=== PATIENT | female | born 1985 | race Two or more races ===

== ENCOUNTER 2024-10-19 15:50 | Emergency (ER) | payer OTHER, SELFPAY ==
--- NOTE | ~2024-10-19 | XR_ITS ---
XR foot RT min 3V Ordering provider: MEILSSA Falcon History: . foot pain ,top and arch x 1 month . Comparison: None. FINDINGS: BONES: No acute fracture or dislocation. JOINT SPACES: Narrowing of the proximal and distal interphalangeal joints. No tarsal coalition. SOFT TISSUES: Normal. IMPRESSION: No acute osseous abnormality of the right foot. Polyarticular osteoarthritic changes. Reviewed, dictated and finalized at location A. BUILDER
[2024-10-19 15:58] VITALS: BP 130/64; PULSE 89; RESP 16; TEMP 37; O2SAT 100
[2024-10-19 16:14] VITALS: BP 130/64; PULSE 89; RESP 16; TEMP 37; O2SAT 100
--- NOTE | 2024-10-19 17:27 | ED_ITS ---
HPI - General Adult General Chief complaint: Extremity Problem,Nontraumatic Stated complaint: Right foot pain Source: patient Mode of arrival: ambulatory Limitations: no limitations History of Present Illness HPI narrative: Patient presents for evaluation of right foot pain since August. She cannot identify any specific precipitating injury. She states that she started a walking program in August but was experiencing pain in the dorsal aspect of the right foot so stopped walking for the month of September. Pain continued to worsen. At rest her pain is 6/10 in severity. With movement and weight bearing her pain increases to 8-10/10. She states the pain is aching, sharp, and throbbing. She developed some numbness in her right toes as of today. Related Data Allergies Allergy/AdvReac Type Severity Reaction Status Date / Time iohexol Allergy Unknown Verified 10/19/24 16:03 [From contrast - CT, X-RAY] Review of Systems Review of Systems: CONSTITUTIONAL: Denies fever, chills, or sweats. EYES: Denies visual changes, redness, or discharge. ENT: Denies rhinorrhea, congestion, sore throat, or otalgia. CARDIOVASCULAR: Denies chest pain, palpitations, or edema. RESPIRATORY: Denies cough or dyspnea. GASTROINTESTINAL: Denies abdominal pain, nausea, vomiting, or diarrhea. GENITOURINARY: Denies dysuria or hematuria. SKIN: Denies rash or itching. MUSCULOSKELETAL: Reports right foot pain NEUROLOGIC: Reports numbness in the toes of the right foot. Denies headache, dizziness, or weakness. PSYCHIATRIC: Denies anxiety or depression. PMFSH Past Medical History Medical History (Updated 10/19/24 @ 18:45 by MELISSA Falcon, ) Fatty liver Surgical History Surgical History History of eye surgery Family History Family History Mother Family history non-contributory Social History Social History Smoking status: Never smoker Substance use: never Gender identity (if verbalized by the patient): Female Spiritual care concerns: No Exam Narrative: GENERAL: Well-appearing, well-nourished, and in no acute distress. HEAD: Normocephalic, atraumatic. EYES: PERRLA and EOMI. ENT: Nares clear, no rhinorrhea or epistaxis. Mucous membranes moist. Oropharynx without tonsillar hypertrophy exudate or other lesions. Bilateral TMs pearly delgado nonbulging NECK: Supple. No adenopathy or masses. No carotid bruits or JVD CHEST: Clear to auscultation. No respiratory distress. No wheezes rales or rhonchi HEART: Regular rate and rhythm. No murmur heard. Normal peripheral pulses. ABDOMEN: Soft, nontender, nondistended, normal active bowel sounds. EXTREMITIES: Able to dorsi and plantar flex the right foot. There is tenderness over the dorsal aspect of the right foot. There is no crepitus or deformity present. SKIN: Warm, dry, no rash. NEURO: No focal deficits. Alert and oriented x3. PSYCH: Normal mood and affect. Course Course Emergency Course: This is a 39-year-old female who presented for evaluation of right foot pain. X-ray showed arthritic changes. She has already been taking ibuprofen without m uch improvement. Will discharge with tramadol. Recommend following up with Podiatry. She may continue to use NSAIDs as needed. Go to the emergency department for intractable pain. Patient in agreement with plan of care Level of Care: Express Care Visit Vital Signs Vital signs: Vital Signs Temperature 37.0 C 10/19/24 15:58 Pulse Rate 89 10/19/24 15:58 Respiratory Rate 16 10/19/24 15:58 Blood Pressure 130/64 10/19/24 15:58 Pulse Oximetry 100 10/19/24 15:58 Oxygen Delivery Room Air 10/19/24 15:58 Temperature 37.0 C 10/19/24 16:14 Pulse Rate 89 10/19/24 16:14 Respiratory Rate 16 10/19/24 16:14 Blood Pressure 130/64 10/19/24 16:14 Pulse Oximetry 100 10/19/24 16:14 Oxygen Delivery Room Air 10/19/24 16:14 Medical Decision Making Vital Signs Vital Signs: Vital Signs Temperature 37.0 C 10/19/24 15:58 Pulse Rate 89 10/19/24 15:58 Respiratory Rate 16 10/19/24 15:58 Blood Pressure 130/64 10/19/24 15:58 Pulse Oximetry 100 10/19/24 15:58 Oxygen Delivery Room Air 10/19/24 15:58 Temperature 37.0 C 10/19/24 16:14 Pulse Rate 89 10/19/24 16:14 Respiratory Rate 16 10/19/24 16:14 Blood Pressure 130/64 10/19/24 16:14 Pulse Oximetry 100 10/19/24 16:14 Oxygen Delivery Room Air 10/19/24 16:14 Lab Data Labs: Lab Results 10/19/24 Range/Units 17:45 POC Capillary Glucose 90 (65-105) mg/dl Imaging Data Radiologist's impression: XR foot RT min 3V Ordering provider: MELISSA Falcon History: . foot pain ,top and arch x 1 month . Comparison: None. FINDINGS: BONES: No acute fracture or dislocation. JOINT SPACES: Narrowing of the proximal and distal interphalangeal joints. No tarsal coalition. SOFT TISSUES: Normal. IMPRESSION: No acute osseous abnormality of the right foot. Polyarticular osteoarthritic changes. Discharge Plan Discharge Clinical Impression: Arthritis of foot, right Patient Disposition: Home, Self-Care Condition: Stable Instructions: Antibiotic Form, Arthritis (ED) Patient Language: Italian Prescriptions: New tramadol 50 mg tablet 50 mg PO Q8H PRN (Reason: pain) Qty: 15 0RF Follow-up/Referrals: Toshia,Jeannette Reyes DPM [Non-Staff] - Raffaele Tejada MD [Physician] - Time of Disposition: 18:45
[2024-10-19 17:48] LABS: Glucose Point of Care 90 mg/dl (65-105)
== END 2024-10-19 18:48 | disposition home or self-care (01) ==
PROVIDERS: Emergency Provider Nurse Practitioner
DX: M19.071 Primary osteoarthritis, right ankle and foot (principal); K76.0 Fatty (change of) liver, not elsewhere classified
CPT/HCPCS: 73630; 82948; 99203; G0463

== ENCOUNTER 2025-07-26 07:59 | Outpatient (CLI) | payer OTHER, SELFPAY ==
[2025-07-26 08:18] LABS: Hematocrit 43.2 % (37.0-47.0); Hemoglobin 13.5 g/dL (12.0-15.0); Immature Granulocyte Percent A 0.4 % (0-0.5); Lymphocytes Absolute Auto 2.84 K/mm3 (0.9-3.2); Mean Corpuscular HGB Conc 31.3 g/dl (32-36); Mean Corpuscular Hemoglobin 28.4 pg (26-34); Mean Corpuscular Volume 90.8 fl (80-100); Nucleated Red Blood Cells Absolute Auto 0.000 K/mm3 (0.0-0.012); Nucleated Red Blood Cells Perc 0.0 % (0.0-0.2); Platelet Count Result 287 k/mm3 (150-375); Red Blood Count 4.76 M/mm3 (4.2-5.4); White Blood Count 8.9 K/mm3 (4.5-10.0)
--- OUTSIDE RECORDS SUMMARY | 2025-07-26 08:24 | XMS_ITS | Encounter Summary ---
Author Organization [facility] Address [address] [place] [address] Care Team Providers Care Wall Taper Helper Name Role Phone Sage Merritt DO Primary Care Provider [phone] Encounter Details Date Type Department Care Team (Late st Contact Info) Description 08/29/1998 Outpatient Historical [facility] Jennifer Lee MD [address] [place] [address] Social History Tobacco Use Types Packs/Day Years Used Date Smoking Tobacco: Never Assessed Comments Unknown Sex and Gender Information Value Date Recorded Sex Assigned at Not on file Legal Sex Female 4:31 AM MANAGEMENT ACCOUNTS MANAGER Gender Identity Not on file Sexual Orientation Not on file documented as of this encounter Plan of Treatment Not on file documented as of this encounter Visit Diagnoses Not on filedocumented in this encounter Care Teams Wall Taper Helper Relationship Specialty Start Date End Date Sage Merritt DO [facility] [place] [id number] PCP - General Family Practice 11/06/23 documented as of this encounter
--- OUTSIDE RECORDS SUMMARY | 2025-07-26 08:24 | XMS_ITS | Encounter Summary ---
Author Organization [facility] Address 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
--- OUTSIDE RECORDS SUMMARY | 2025-07-26 08:24 | XMS_ITS | Clinical Summary ---
Author Organization [facility] Address [address] [place] [address] Phone Care Team Providers Care Hat Renovator Name Role Phone Sage Merritt DO Primary Care Provider [phone] Allergies Active Allergy Reactions Criticality Noted Date Comments Iodinated Contrast Media Nausea and Vomiting Low Medications etonogestreL (Nexplanon) 68 mg Implant Inject by subcutaneous injection. Active valACYclovir (VALTREX) 500 mg tabletIndicatio ns:H/O cold sores TAKE 1 TABLET BY MOUTH TWICE A DAY 180 Tablet 1 3 Active albuterol sulfate HFA 90 mcg/actuation aerosol inhalerIndicati ons:Viral URI with cough,Exercise- induced asthma Take 2 Puffs by inhalation every 6 hours as needed for Shortness of Breath or Wheezing. 8.5 Gram 4 Active benzonatate (TESSALON) 200 mg capsuleIndicati ons:Viral URI with cough Take 1 Capsule (200 mg) by mouth 3 times daily as needed for Cough. 30 Capsule 4 Active predniSONE (DELTASONE) 10 mg tabletIndicatio ns:Viral URI with cough Take 4 tablets in the morning for 3 days, then 3 tablets for 3 days, then 2 tablets for 3 days, then 1 tablet for 3 days 30 Tablet 4 Active estradioL (ESTRACE) 0.5 mg tablet take 1 tablet by mouth every day 90 Tablet 1 4 Active venlafaxine (EFFEXOR XR) 150 mg Extended Release 24 hour capsuleIndicati ons:DORIS (generalized anxiety disorder),React rita depression (situational) take 1 capsule by mouth every day 90 Capsule 1 4 Active Active Problems Problem Noted Date Diagnosed Date Reactive depression (situational) 09/24/2022 DORIS (generalized anxiety disorder) 09/24/2022 Prediabetes 09/24/2022 Elevated LFTs 09/24/2022 NAFLD (nonalcoholic fatty liver disease) 022 Gastroesophageal reflux disease without esophagi tis 09/24/2022 Exercise-induced asthma 09/24/2022 Resolved Problems Problem Noted Date Diagnosed Date Resolved Date Insomnia due to other mental disorder 09/24/2022 11/06/2023 Immunizations Immunization Administration Dates Next Due (ADACEL/BOOSTRIX)(10 YR UP) TDAP VACCINE, 0.5ML, IM 02/08/2014 (PFIZER)(12 YR UP) COVID-19 VACCINE - EMERGENCY USE AUTHORIZATION, MRNA, [id number](PF) 30 MCG/0.3 ML IM SUSP 03/02/2021,02/09/2021 Influenza Seasonal Unspecified Formulation IM Social History Tobacco Use Types Packs/Day Years Used Date Smoking Tobacco: Never Smokeless Tobacco: Never Tobacco Cessation:Counseling Given: Not Answered Alcohol Use Standard Drinks/Week Comments Yes 2 (1 standard drink = 0.6 oz pur e alcohol) Comments No Sex and Gender Information Value Date Recorded Sex Assigned at Not on file Legal Sex Female 4:31 AM WELDER TECH Gender Identity Not on file Sexual Orientation Not on file Last Filed Vital Signs Vital Sign Reading Time Taken Comments Blood Pressure 132/87 12/19/2023 8:28 AM WELDER TECH Pulse 76 12/19/2023 8:28 AM WELDER TECH Temperature 36.5 C (97.7 F) 12/19/2023 8:28 AM WELDER TECH Respiratory Rate 25 09/24/2022 4:00 PM WELDER TECH Oxygen Saturation 96% 12/19/2023 8:28 AM WELDER TECH Inhaled Oxygen Concentration - - Weight 81.4 kg (179 lb 6.4 oz) 12/19/2023 8:28 A M WELDER TECH Height 149.9 cm (4' 11) 12/19/2023 8:28 AM WELDER TECH Body Mass Index 36.23 12/19/2023 8:28 AM WELDER TECH Plan of Treatment Health Maintenance Due Date Last Done Comments HEPATITIS B VACCINES (1 of 3 - 19+ 3-dose series) 2003 HPV VACCINES (1 - 3-dose SCD M series) 2011 DTAP/TDAP/TD VACCINES (2 - T d or Tdap) 02/09/2024 02/08/2014 BREAST CANCER SCREENING 2024 03/19/2023 Preventative Visit- Commercial 11/17/2024 0 03/03/2023, 09/24/2022, 12/18/2020, Additional history exists INFLUENZA VACCINE (#1) 2025 09/24/2022, 2014 COVID-19 Vaccine ( - 2024-2 6 season) 2025 03/02/2021, 02/09/2021 PAP SMEAR 03/03/2026 03/03/2023, 11/2020, 04/22/2019 CERVICAL CANCER SCREENING 03/03/2028 HPV/Cotest (21-29) 03/03/2028 03/03/2023, 12/18/2020 HPV/Cotest (30-65) 03/03/2028 03/03/2023, 12/18/2020 Procedures Procedure Name Priority Date/Time Associated Diagnosis Comments MAMMO 3D JOSE GUADALUPE DIAGNOSTIC BILAT W OR WO CAD Routine 03/19/2023 3:11 PM CDT Breast lump on left side at 5 o'clock position Axillary lump, left CERV/VAG CYTO SCREEN PAP RLFX HPV Routine 03/03/2023 4:50 PM CDT Encounter for gynecological examination (general) (routine) with abnormal findings from Last 3 Months or Most Recently Relevant to Health Maintenance Results * (ABNORMAL) MAMMO DIAG BILAT 3D JOSE GUADALUPE W OR WO CAD (03/19/2023 3:11 PM CDT) Anatomical Region Laterality Modality Breast Bilateral Mammography 03/19/2023 3:12 PM CDT Impressions 03/20/2023 7:25 AM CDT IMPRESSION: A new mass at 4:00 of the left breast which probably represents a fibroadenoma. The mass in the inner central aspect of the right breast is unchanged which is likely benign. RECOMMENDATIONS: Ultrasound-guided left breast core biopsy. Left breast overall assessment: BI-RADS Category 4A. Low suspicious lesion. Tissue biopsy is needed. Right breast overall assessment: BI-RADS Category 2. Benign findings. DICTATION LOCATION: Location [address] [place] [address] 03/20/2023 7:25 AM CDT MAMMOGRAPHY DIGITAL DIAGNOSTIC BILATERAL 3-D TOMOGRAPHY WITH OR WITHOUT CAD AND LEFT BREAST ULTRASOUND LIMITED 03/19/2023. HISTORY: Palpable area in the left breast. TECHNIQUE: Low-dose full-field digital tomosynthesis of bilateral breasts was performed with 2-D and 3-D acquisition. Computer aided diagnosis was also applied. COMPARISON: 06/10/2017. Mammographic findings: The breast tissues are heterogeneously dense bilaterally which may lower the sensitivity of the mammography. An oval mass with circumscribed margins in the inner central aspect of the right breast at posterior depth is again seen, unchanged. No new mass, malignant calcification or architectural distortion is seen in the right breast. In the central slightly lateral and inferior aspect of the left breast, a new oval mass with circumscribed margins at the anterior depth is seen which corresponds to the palpable area. No no malignant calcification or architectural distortion is identified. CAD was used. Left breast ultrasound findings: At 4:00, 5 cm from the nipple, a hypoechoic oval parallel mass is identified which corresponds to the palpable area. It has smooth margins measuring 1.5 x 0.8 x 1.4 cm. It probably represents a fibroadenoma. Procedure Note Latoya Garsia MD - 03/20/2023 MAMMOGRAPHY DIGITAL DIAGNOSTIC BILATERAL 3-D TOMOGRAPHY WITH OR WITHOUT CAD AND LEFT BREAST ULTRASOUND LIMITED 03/19/2023. HISTORY: Palpable area in the left breast. TECHNIQUE: Low-dose full-field digital tomosynthesis of bilateral breasts was performed with 2-D and 3-D acquisition. Computer aided diagnosis was also applied. COMPARISON: 06/10/2017. Mammographic findings: The breast tissues are heterogeneously dense bilaterally which may lower the sensitivity of the mammography. An oval mass with circumscribed margins in the inner central aspect of the right breast at posterior depth is again seen, unchanged. No new mass, malignant calcification or architectural distortion is seen in the right breast. In the central slightly lateral and inferior aspect of the left breast, a new oval mass with circumscribed margins at the anterior depth is seen which corresponds to the palpable area. No no malignant calcification or architectural distortion is identified. CAD was used. Left breast ultrasound findings: At 4:00, 5 cm from the nipple, a hypoechoic oval parallel mass is identified which corresponds to the palpable area. It has smooth margins measuring 1.5 x 0.8 x 1.4 cm. It probably represents a fibroadenoma. IMPRESSION: A new mass at 4:00 of the left breast which probably represents a fibroadenoma. The mass in the inner central aspect of the right breast is unchanged which is likely benign. RECOMMENDATIONS: Ultrasound-guided left breast core biopsy. Left breast overall assessment: BI-RADS Category 4A. Low suspicious lesion. Tissue biopsy is needed. Right breast overall assessment: BI-RADS Category 2. Benign findings. DICTATION LOCATION: Location 1 - [facility] Rosalba Salas COMMERCIAL REVIEW APPRAISER MAMMO ORDERABLES Fin al Result * CERV/VAG CYTO SCREEN PAP RLFX HPV (03/03/2023 4:50 PM CDT) CLINICAL INFORMATION Kamilla Ramirez Comment:None given LAST MENSTRUAL PERIOD Kamilla Ramirez Comment:[id number] PREV PAP: Kamilla Ramirez Comment:NONE GIVEN PREV BX: Kamilla Ramirez Comment:NONE GIVEN SOURCE Kamilla Ramirez Comment:ENDOCERVIX ADEQUACY: Kamilla Ramirez Comment: Satisfactory for evaluation. Endocervical/transformation zone component present. PAP INTERP Kamilla Ramirez Comment:Negative for intraep ithelial lesion or malignancy. CYTOLOGY INFECTION Q jaun Ramirez Comment: Shift in vaginal chante suggestive of bacterial vaginosis. COMMENT (PAP TEST) Q jaun Ramirez Comment: This Pap test has been evaluated with computer assisted technology. AIRCRAFT MAINTENANCE TECHNICIAN: Violetta Ramirez Comment: MMW, CT(ASCP) CT screening location: [facility] [address] [place] [address] [address] Hallie Ramirez Comment: EXPLANATORY NOTE: The Pap is a screening test for cervical cancer. It is not a diagnostic test and is subject to false negative and false positive results. It is most reliable when a satisfactory sample, regularly obtained, is submitted with relevant clinical findings and history, and when the Pap result is evaluated along with historic and current clinical information. Test Performed at: [place] [address] [address] [id number] Kirk Mao Genital SWAB OF ENDOCERVIX / Unknown 03/03/2023 4:50 PM CDT 03/04/2023 1:11 AM CDT Rosalba Salas COMMERCIAL REVIEW APPRAISER PATHOLOGY/CYTOLOGY O RDERABLES Final Result [facility] [phone] [place] [address] [address] [id number] from Last 3 Months or Most Recently Relevant to Health Maintenance Insurance [employer] [facility] [id number] Care Teams Hat Renovator Relationship Specialty Start Date End Date Sage Merritt DO [facility] [place] [address] PCP - General Family Practice 11/06/23
--- OUTSIDE RECORDS SUMMARY | 2025-07-26 08:24 | XMS_ITS | Encounter Summary ---
Author Organization [facility] Address [address] [place] [address] Care Team Providers Care Machine Set Up Operator Name Role Phone Sage Merritt DO Primary Care Provider [phone] Encounter Details Date Type Department Care Team (Late st Contact Info) Description 09/13/1998 Outpatient Historical [facility] PRIMARY CARE Jennifer Lee MD [address] [place] [address] Social History Tobacco Use Types Packs/Day Years Used Date Smoking Tobacco: Never Assessed Comments Unknown Sex and Gender Information Value Date Recorded Sex Assigned at Not on file Legal Sex Female 4:31 AM SURGICAL ELASTIC KNITTER HAND FRAME Gender Identity Not on file Sexual Orientation Not on file documented as of this encounter Plan of Treatment Not on file documented as of this encounter Visit Diagnoses Not on filedocumented in this encounter Care Teams Machine Set Up Operator Relationship Specialty Start Date End Date Sage Merritt DO [facility] [place] [phone] PCP - General Family Practice 11/06/23 documented as of this encounter
--- OUTSIDE RECORDS SUMMARY | 2025-07-26 08:24 | XMS_ITS | Encounter Summary ---
Author Organization [facility] Address 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
--- OUTSIDE RECORDS SUMMARY | 2025-07-26 08:24 | XMS_ITS | Encounter Summary ---
Author Organization [facility] Address 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
--- OUTSIDE RECORDS SUMMARY | 2025-07-26 08:24 | XMS_ITS | Encounter Summary ---
Author Organization [facility] Address [address] [place] [address] Care Team Providers Care Communication Studies Professor Name Role Phone Sage Merritt DO Primary Care Provider [phone] Encounter Details Date Type Department Care Team (Late st Contact Info) Description 10/28/2011 Chart Note [facility] Orthopaedic Trauma Surgery [address] [facility] [address] [phone] Suresh Ferguson MD [address] [place] [address] Social History Tobacco Use Types Packs/Day Years Used Date Smoking Tobacco: Never Assessed Comments Unknown Sex and Gender Information Value Date Recorded Sex Assigned at Not on file Legal Sex Female 4:31 AM PACKING ROOM SUPERVISOR Gender Identity Not on file Sexual Orientation Not on file documented as of this encounter Progress Notes * Suresh Ferguson MD - 10/28/2011 9:17 AM CST Dear Marybeth Harris MD, We had the pleasure of seeing Leona Royal today in sports medicine and shoulder surgery clinic at [facility] for her right gastroc strain. We have recommended ice, NSAIDs, and physicaltherapy. She may also discontinue crutches. We will gladly see her back if her symptoms persist and do not improve in the future. Please do not hesitate to contact me with questions regarding her or any other patient in the future. Best regards, Shan Lombardo MD ING ROOM SUPERVISOR documented in this encounter Plan of Treatment Not on file documented as of this encounter Visit Diagnoses Not on filedocumented in this encounter Care Teams Communication Studies Professor Relationship Specialty Start Date End Date Sage Merritt DO [address] [place] [phone] PCP - General Family Practice 11/06/23 documented as of this encounter
--- OUTSIDE RECORDS SUMMARY | 2025-07-26 08:24 | XMS_ITS | Clinical Summary ---
Author Organization [facility] [employer] Address [address] [place] [address] Care Team Providers Care Groundskeeper Porter Name Role Phone Navdeep Carroll PA-C Primary Care Provider Source Comments [facility],non-owned Affiliates and Associated Physician Practices is amultiple site organization consisting of ambulatory clinics and hospital sitesin [place], [place], [place] and [place]. This disclosure is being madepursuant to the Care Everywhere program and may not contain all information available regarding this patient. Last updated 18.[facility] [employer] Allergies Active Allergy Reactions Criticality Noted Date Comments Contrast-Iodinated Agents Fo r Ct/Other Nausea and/or Vomiting 12/16/2019 Medications * Be aware that medications may not be up to date on this document. Alwaysverify current medications with the patient. albuterol HFA (PROVENTIL;ESMER ROSY;PROAIR) 108 (90 BASE) MCG/ACT inhaler Inhale 2 Puffs by mouth every 4 hours 5 Active valACYclovir (VALTREX) 500 MG tablet Take 1 tablet by mouth every 12 hours prn 60 tablet 8 Active levonorgestrel-e thinyl estradiol (SEASONALE; JOLESSA; QUASENSE) tablet Take 1 tablet by mouth once daily 1 packet 3 9 Active mometasone (ELOCON) 0.1 % ointmentIndicati ons:Alopecia Apply to affected area of scalp once daily. 30 days supply. 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 30 days supply 120 mL 4 9 Active Additional Information Patient not taking.Reported on 12/16/2019 hydrocortisone (HYTONE) 2.5 % ointmentIndicati ons:Rash and other nonspecific skin eruption Apply to axillae twice daily. 30 days supply. 30 g 4 9 Active Additional Information Patient not taking.Reported on 12/16/2019 prochlorperazine (COMPAZINE) 10 MG tabletIndication s:Nausea and Vomiting Take 1 tablet by mouth every 8 hours as needed for Nausea/Vomiting Reasons: Nausea and Vomiting 25 tablet 0 Active Active Problems No known active problems Immunizations Immunization Administration Dates Next Due INFLUENZA VACCINE, TRIV. (AF LURIA, FLUZONE TRIVALENT; 6MO+) (IIV3) 10/01/2015 TDAP (7yrs+) 02/08/2014 Family History Relation Name Status Comments Brother Alive Father Alive Maternal Grandfather Maternal Grandmother Mother Alive Paternal Grandfather Paternal Grandmother Sister Alive Social History Tobacco Use Types Packs/Day Years Used Date Smoking Tobacco: Never Smokeless Tobacco: Never Alcohol Use Standard Drinks/Week Comments Yes 0 (1 standard drink = 0.6 oz pur e alcohol) occasional Comments No Sex and Gender Information Value Date Recorded Sex Assigned at Not on file Legal Sex Female 6:33 AM FISHER HAND LINE Gender Identity Not on file Sexual Orientation Not on file Last Filed Vital Signs Vital Sign Reading Time Taken Comments Blood Pressure 108/80 12/16/2019 2:04 PM FISHER HAND LINE Pulse 72 12/16/2019 2:04 PM FISHER HAND LINE Temperature 37.2 C (98.9 F) 12/16/2019 2:04 PM FISHER HAND LINE Respiratory Rate 16 11/03/2017 4:24 PM FISHER HAND LINE Oxygen Saturation 98% 12/16/2019 2:04 PM FISHER HAND LINE Inhaled Oxygen Concentration - - Weight 77.9 kg (171 lb 12.8 oz) 12/16/2019 2:04 PM FISHER HAND LINE Height 149.9 cm (4' 11) 02/19/2018 8:27 AM CDT Body Mass Index 34.7 02/19/2018 8:27 AM CDT Plan of Treatment Health Maintenance Due Date Last Done Comments MAMMOGRAM 1984 HIV SCREENING 1999 HEPATITIS B VACCINE (1 of 3 - 19+ 3-dose series) 2003 HPV VACCINE (1 - 3-dose SCDM series) 2011 LIPID TESTING 12/05/2021 12/05/2016, 12/21/2011 DTAP/TDAP/TD VACCINES (2 - T d or Tdap) 02/09/2024 02/08/2014 PAP with HPV 04/22/2024 04/22/2019 DEPRESSION SCREENING 11/17/2024 COVID-19 VACCINE ( - 2023-2 5 season) 2025 INFLUENZA VACCINE (#1) 2025 10/01/2015 ZOSTER VACCINE (1 of 2) 2034 HEPATITIS C SCREENING Completed 12/17/2019 , 12/17/2019, 06/06/2010 HIB VACCINE Aged Out No longer eligi ble based on patient's age to complete this topic MENINGOCOCCAL (Group B) VACCINE SHARED DECISION-MAKING Aged Out No longer eligible based on patient's age to complete this topic MENINGOCOCCAL GROUPS A/C/Y/W VACCINE Aged Out No longer eligible b ased on patient's age to complete this topic PNEUMOCOCCAL VACCINE Aged Out No long er eligible based on patient's age to complete this topic Procedures Procedure Name Priority Date/Time Associated Diagnosis Comments HPV DETECTION HIGH RISK WOO Routine 04/22/2019 10:56 AM CDT Well woman exam with routine gynecological exam LIPID PROFILE Routine 12/05/2016 11:44 AM FISHER HAND LINE HEPATITIS C RIBA CONFIRMATION Routine 06/06/2010 2:21 PM CDT from Last 3 Months or Most Recently Relevant to Health Maintenance Results * (ABNORMAL) HPV DETECTION HIGH RISK WOO (04/22/2019 10:56 AM CDT) Pathologist [facility] High Risk Human Papilloma Result Detected( A) Not Detected 04/26/2019 4:45 PM CDT [facility] High Risk Human Papilloma Interp 04/26/2019 4:45 PM CDT [facility] Comment:High Risk Human Thierry lloma Virus - Detected Pathology/Cytolo gy MISCELLANEOUS SAMPLES / Unknown 04/22/2019 10:56 AM CDT 04/23/2019 10:56 AM CDT Narrative [facility] - 04/26/2019 4:45 PM CDT Nucleic acid isolated from the specimen was analyzed with a nucleic acid amplification test (FDA approved Gen-Probe HPV Assay) to detect high risk human papilloma virus (Types: 16, 18, 31, 33, 35, 39, 45, 51, 52, 56, 58, 59, 66, and 68). The reference range is Not Detected. Comment: These test results should not be used as the sole basis for clinical assessment and treatment of patients. These results should always be correlated with other available data (cytology, histology, and clinical information). Navdeep Carroll PA-C LAB - MICROBIOLOGY ORDERABL ES Final Result [facility] [address] [phone] * (ABNORMAL) LIPID PROFILE (12/05/2016 11:44 AM FISHER HAND LINE) Pathologist [facility] Cholesterol Total 233(H) 125 - 200 mg/dL [facility]) HDL 57 > OR = 46 mg/dL [facility] Triglycerides 120 <150 mg/dL [facility] LDL Calculated 152(H) <130 mg/dL (calc) [facility] ([facility]) Comment: Desirable range <100 mg/dL for patients with CHD or diabetes and <70 mg/dL for diabetic patients with known heart disease. Chol/HDL Ratio 4.1 < OR = 5.0 (calc) [facility]) Non HDL Cholesterol 176(H) mg/dL (calc) [facility] ([facility]) Comment: Target for non-HDL cholesterol is 30 mg/dL higher than LDL cholesterol target. Test Performed at: [facility] [address] [address] [facility] [place] [address] LITO BROWN DO,MPH Blood specimen (specimen) BLOOD SPECIMEN / Unknown 12/05/2016 11:44 AM FISHER HAND LINE 12/05/2016 11:44 AM FISHER HAND LINE Navdeep Carroll PA-C LAB - CHEMISTRY ORDERABLES Final Result Performing Organization Address [facility] Co de Phone Number [facility] ([facility]) [address] * HEPATITIS C RIBA CONFIRMATION (06/06/2010 2:21 PM CDT) Hepatitis C Antibody 0.1 0.0 - 0.9 s/co ratio [facility] ([facility]) Comment: Negative Not infected with HCV, unless recent infection is suspected or other evidence exists to indicate HCV infection. Blood specimen (specimen) 06/06/2010 2:21 PM CDT 06/06/2010 9:18 PM CDT Narrative [facility] ([facility]) - 06/07/2010 9:30 AM CDT Preferred Lab:->[facility] Performed at: - [facility] [address] [place], [place] [id number] Manager Hospitality: Yun Mckeon MD, Phone: [phone] Historical Provider MD LAB - SEROLOGY ORDERABLES Final Result Performing Organization Address City/[facility] Co de Phone Number [facility] ([facility]) [address] [place] [address] from Last 3 Months or Most Recently Relevant to Health Maintenance Insurance [employer] Care Teams Groundskeeper Porter Relationship Specialty Start Date End Date Navdeep Carroll PA-C [address] [place] [phone] PCP - General Physician Cv/Cvn Cv Tsc System Operator 01/06/18
--- OUTSIDE RECORDS SUMMARY | 2025-07-26 08:24 | XMS_ITS | Encounter Summary ---
Author Organization [facility] Address [address] [place] [address] Care Team Providers Care Farm Operations Technical Director Name Role Phone Sage Merritt DO Primary Care Provider [phone] Encounter Details Date Type Department Care Team (Late st Contact Info) Description 03/29/1999 Outpatient Historical HIS [facility] PRIMARY CARE Jennifer Lee MD [address] [place] [address] Social History Tobacco Use Types Packs/Day Years Used Date Smoking Tobacco: Never Assessed Comments Unknown Sex and Gender Information Value Date Recorded Sex Assigned at Not on file Legal Sex Female 4:31 AM MATHEMATICS INSTRUCTOR Gender Identity Not on file Sexual Orientation Not on file documented as of this encounter Plan of Treatment Not on file documented as of this encounter Visit Diagnoses Not on filedocumented in this encounter Care Teams Farm Operations Technical Director Relationship Specialty Start Date End Date Sage Merritt DO [facility] [place] [phone] PCP - General Family Practice 11/06/23 documented as of this encounter
== END 2025-07-26 08:00 | disposition home or self-care (01) ==
PROVIDERS: Visit Provider Obstetrics & Gynecology
DX: N94.6 Dysmenorrhea, unspecified (principal); N83.202 Unspecified ovarian cyst, left side
CPT/HCPCS: 36415; 85025; 86850; 86900; 86901

== ENCOUNTER 2025-07-29 01:43 | Day surgery (SDC) | payer OTHER, SELFPAY ==
[2025-07-21 10:28] VITALS: BMI 35.6
--- NOTE | 2025-07-26 03:27 | P.HP_ITS ---
H&P: HPI History of Present Illness Date/Time: 07/26/25 03:27 Chief Complaint: Pelvic pain with left ovarian cyst dyspareunia Narrative: 39-year-old total vaginal hysterectomy bilateral salpingectomy and left ovarian cystectomy possible left oophorectomy secondary to pelvic pain dysmenorrhea left ovarian cyst and irregular bleeding. Risks and benefits reviewed including exclusive , aspiration bleeding, transfusion, perforation injury to bowel, bladder, ureters, or other internal organs with need for open laparotomy. She received the [employer] handout entitled hysterectomy. She had the [place] handout g iven to her. She had all questions answered as proceed Review of Systems Review of Systems: CONSTITUTIONAL: Denies fever, chills, or sweats. EYES: Denies visual changes, redness, or discharge. ENT: Denies rhinorrhea, congestion, sore throat, or otalgia. CARDIOVASCULAR: Denies chest pain, palpitations, or edema. RESPIRATORY: Denies cough or dyspnea. GASTROINTESTINAL: Denies abdominal pain, nausea, vomiting, or diarrhea. GENITOURINARY: Denies dysuria or hematuria. SKIN: Denies rash or itching. MUSCULOSKELETAL: Reports right foot pain NEUROLOGIC: Reports numbness in the toes of the right foot. Denies headache, dizziness, or weakness. PSYCHIATRIC: Denies anxiety or depression. [facility] Past Medical History Medical History (Updated 07/26/25 @ 03:30 by Benny Ortiz MD) Pelvic pain Fatty liver Surgical History Surgical History History of eye surgery Family History Family History Mother Family history non-contributory Social History Social History Smoking status: Never smoker Substance use: never Substance use type: does not use Living arrangements: with family Gender identity (if verbalized by the patient): Female Spiritual care concerns: No Meds Home Medications and Allergies Home Medications ?Medication ?Instructions ?Recorded ?Confirmed ?Type ibuprofen 200 mg tablet (Advil) 400 mg PO QID PRN pain 07/21/25 07/21/25 History magnesium 200 mg tablet 400 mg PO HS PRN insomnia 07/21/25 History Allergies Allergy/AdvReac Type Severity Reaction Status Date / Time iohexol (From contrast - CT, Allergy Intermediate Swelling Verified 07/21/25 10:26 X-RAY) of Lip/Tongue/Throat Exam Const: General: cooperative, healthy appearing and comfortable Nutritional Appearance: overweight Orientation/consciousness: oriented to person, oriented to place and oriented to time HENMT: Head: normal to inspection Resp: Effort & Inspection: normal respiratory effort Cardio: Rate: regular rate Rhythm: regular rhythm Heart sounds: S1 normal heart sound present and S2 normal heart sound present GI: Inspection: normal to inspection : External Female Exam: normal external appearance Speculum Exam - Vagina: normal appearance of the vagina Speculum Exam - Cervix: normal appearance of the cervix Bimanual exam- vagina & uterus: enlarged Bimanual Exam- Adnexa, other: normal adnexae Assessment and Plan Assessment and plan (1) Dyspareunia: Status: Acute (2) Left ovarian cyst: Code(s): N83.202 - Unspecified ovarian cyst, left side Status: Acute Plan Proceed with robotic total vaginal hysterectomy bilateral salpingectomy left ovarian cystectomy and possible left oophorectomy
--- NOTE | 2025-07-26 08:07 | PC.NURSE ---
Report to the Outpatient Waiting Room, entrance under the green pavilion located off [facility], at time 0800 on date 07/29/25. Planned Procedure Time: 1000.? Time changes happen often and if your time is changed the preop area will call you the afternoon before. - You and your visitor will be asked to self-screen and do not enter if you have any COVID symptoms. Please call surgeon if you need to reschedule. - A mask is optional within the hospital at this time. Patients may have clear liquids (water, carbonated beverages, clear teas, apple juice) until 3 hours prior to surgery with a maximum of 20 ounces. - No food from midnight until time of surgery and no smoking, or chewing tobacco (or any form of nicotine). No chewing gum, candy or mints. Take only the following medications with a SIP of water on the morning of surgery: None DO NOT STOP ANY OF YOUR OTHER PRESCRIPTION MEDICATIONS PRIOR TO SURGERY EXCEPT THE FOLLOWING Hold all vitamins and supplements for 3 days per anesthesiologist (last dose 07/25/25) Medications to discontinue per physician: Advil Date to take last dose: per Dr. Rio Ortiz Please no make-up, nail danish, hairspray, perfume, deodorant, or body powder the day of surgery.? No jewelry (including any body piercings) or valuables the day of surgery, leave them at home.? Please take a shower or bath the night before, or the morning of, surgery with an antibacterial soap.? Wear comfortable, loose fitting clothing.? Children are encouraged to wear pajamas. - Jewelry must be removed prior to entering the operating room.? Rings and piercings that are not removed may be cut off. - The hospital will not accept responsibility for valuables.? - Please leave all valuables, including medications, at home the day of surgery. If you are going home after surgery, a licensed route cdl driver must drive you home.? - NO public transportation without another adult if you receive anesthesia. - We recommend that an adult stay with you for 24 hours following discharge. - We also recommend that you do not drive, make important decision, drink alcoholic beverages, or take any drugs that were not prescribed by your health care provider for at least 24 hours after your discharge time. Follow any additional instructions given to you from your surgeon. Telephone instructions given to pt - Leona and asked if any additional questions and then verbalized understanding. Patient advised to call surgeon office or pre surgery nurse liaison [phone] if any additional questions.
[2025-07-29] VITALS (11 sets, daily range): BP systolic 94–128; BP diastolic 42–77; PULSE 56–84; RESP 14–24; TEMP 36.4–36.9; O2SAT 96–100
--- OUTSIDE RECORDS SUMMARY | 2025-07-29 01:46 | XMS_ITS | Encounter Summary ---
Author Organization [facility] Address [address] [place] [address] Care Team Providers Care Door Tender Name Role Phone Sage Merritt DO Primary Care Provider [phone] Encounter Details Date Type Department Care Team (Late st Contact Info) Description 03/29/1999 Outpatient Historical [facility] PRIMARY CARE Jennifer Lee MD [address] [place] [address] Social History Tobacco Use Types Packs/Day Years Used Date Smoking Tobacco: Never Assessed Comments Unknown Sex and Gender Information Value Date Recorded Sex Assigned at Not on file Legal Sex Female 4:31 AM POLICY CHECKER Gender Identity Not on file Sexual Orientation Not on file documented as of this encounter Plan of Treatment Not on file documented as of this encounter Visit Diagnoses Not on filedocumented in this encounter Care Teams Door Tender Relationship Specialty Start Date End Date Sage Merritt DO [facility] [place] [phone] PCP - General Family Practice 11/06/23 documented as of this encounter
--- OUTSIDE RECORDS SUMMARY | 2025-07-29 01:46 | XMS_ITS | Encounter Summary ---
Author Organization [facility] Address [address] [place] [address] Care Team Providers Care Generator Worker Name Role Phone Sage Merritt DO Primary Care Provider [phone] Encounter Details Date Type Department Care Team (Late st Contact Info) Description 03/12/[address] [facility] PRIMARY CARE Jennifer Lee MD [address] [place] [address] Social History Tobacco Use Types Packs/Day Years Used Date Smoking Tobacco: Never Assessed Comments Unknown Sex and Gender Information Value Date Recorded Sex Assigned at Not on file Legal Sex Female 4:31 AM LEAD TELLER Gender Identity Not on file Sexual Orientation Not on file documented as of this encounter Plan of Treatment Not on file documented as of this encounter Visit Diagnoses Not on filedocumented in this encounter Care Teams Generator Worker Relationship Specialty Start Date End Date Sage Merritt DO [facility] [place] [phone] PCP - General Family Practice 11/06/23 documented as of this encounter
--- OUTSIDE RECORDS SUMMARY | 2025-07-29 01:46 | XMS_ITS | Encounter Summary ---
Author Organization [facility] Address [address] [place] [address] Care Team Providers Care Criminal Records Technician Name Role Phone Sage Merritt DO Primary Care Provider [phone] Encounter Details Date Type Department Care Team (Late st Contact Info) Description 09/13/1998 Outpatient Historical [facility] PRIMARY CARE Jennifer Lee MD [address] [place] [address] Social History Tobacco Use Types Packs/Day Years Used Date Smoking Tobacco: Never Assessed Comments Unknown Sex and Gender Information Value Date Recorded Sex Assigned at Not on file Legal Sex Female 4: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
--- OUTSIDE RECORDS SUMMARY | 2025-07-29 01:46 | XMS_ITS | Encounter Summary ---
Author Organization [facility] Address [address] [place] [address] Care Team Providers Care Cardroom Plastic Card Grader Name Role Phone Sage Merritt DO Primary Care Provider [phone] Encounter Details Date Type Department Care Team (Late st Contact Info) Description 06/27/1998 Outpatient Historical [facility] PRIMARY CARE Jennifer Lee MD [address] [place] [address] Social History Tobacco Use Types Packs/Day Years Used Date Smoking Tobacco: Never Assessed Comments Unknown Sex and Gender Information Value Date Recorded Sex Assigned at Not on file Legal Sex Female 4:31 AM CORN SHELLER Gender Identity Not on file Sexual Orientation Not on file documented as of this encounter Plan of Treatment Not on file documented as of this encounter Visit Diagnoses Not on filedocumented in this encounter Care Teams Cardroom Plastic Card Grader Relationship Specialty Start Date End Date Sage Merritt DO [facility] [place] [phone] PCP - General Family Practice 11/06/23 documented as of this encounter
--- OUTSIDE RECORDS SUMMARY | 2025-07-29 01:46 | XMS_ITS | Encounter Summary ---
Author Organization [facility] Address [address] [place] [address] Care Team Providers Care Toll Bridge Attendant Name Role Phone Sage Merritt DO Primary Care Provider [phone] Encounter Details Date Type Department Care Team (Late st Contact Info) Description 08/29/1998 Outpatient Historical HIS [facility] PRIMARY CARE Jennifer Lee MD [address] [place] [address] Social History Tobacco Use Types Packs/Day Years Used Date Smoking Tobacco: Never Assessed Comments Unknown Sex and Gender Information Value Date Recorded Sex Assigned at Not on file Legal Sex Female 4:31 AM PORT CRANE OPERATOR Gender Identity Not on file Sexual Orientation Not on file documented as of this encounter Plan of Treatment Not on file documented as of this encounter Visit Diagnoses Not on filedocumented in this encounter Care Teams Toll Bridge Attendant Relationship Specialty Start Date End Date Sage Merritt DO [facility] [place] [phone] PCP - General Family Practice 11/06/23 documented as of this encounter
--- OUTSIDE RECORDS SUMMARY | 2025-07-29 01:46 | XMS_ITS | Clinical Summary ---
Author Organization [facility] Address [address] [place] [address] Care Team Providers Care Ship Scaler Name Role Phone Navdeep Carroll PA-C Primary Care Provider Source Comments [facility],non-owned Affiliates and Associated Physician Practices is amultiple site organization consisting of ambulatory clinics and hospital sitesin [place], [place], [place] and [place]. This disclosure is being madepursuant to the Care Everywhere program and may not contain all information available regarding this patient. Last updated 18.[facility] [email or web address] Allergies Active Allergy Reactions Criticality Noted Date [...] on file Legal Sex Female 6:33 AM OUTSIDE CONTRACTOR SALES Gender Identity Not on file Sexual Orientation Not on file Last Filed Vital Signs Vital Sign Reading Time Taken Comments Blood Pressure 108/80 12/16/2019 2:04 PM OUTSIDE CONTRACTOR SALES Pulse 72 12/16/2019 2:04 PM OUTSIDE CONTRACTOR SALES Temperature 37.2 C (98.9 F) 12/16/2019 2:04 PM OUTSIDE CONTRACTOR SALES Respiratory Rate 16 11/03/2017 4:24 PM OUTSIDE CONTRACTOR SALES Oxygen Saturation 98% 12/16/2019 2:04 PM OUTSIDE CONTRACTOR SALES Inhaled Oxygen Concentration - - Weight 77.9 kg (171 lb 12.8 oz) 12/16/2019 2:04 PM OUTSIDE CONTRACTOR SALES Height 149.9 cm (4' 11) 02/19/2018 8:27 [...] exam LIPID PROFILE Routine 12/05/2016 11:44 AM OUTSIDE CONTRACTOR SALES HEPATITIS C RIBA CONFIRMATION Routine 06/06/2010 2:21 PM CDT from Last 3 Months or Most Recently Relevant to Health Maintenance Results * (ABNORMAL) HPV DETECTION HIGH RISK WOO (04/22/2019 10:56 AM CDT) Pathologist [facility] High Risk Human Papilloma Result Detected( A) Not Detected 04/26/2019 4:45 PM CDT [facility] High Risk Human Papilloma Interp 04/26/2019 4:45 PM CDT [facility] Comment:High Risk Human Thierry lloma Virus - Detected Pathology/Cytolo gy MISCELLANEOUS SAMPLES / Unknown 04/22/2019 10:56 AM CDT 04/23/2019 10:56 AM CDT Narrative [facility] - 04/26/2019 4:45 PM [...] LAB - MICROBIOLOGY ORDERABL ES Final Result [facility] [address] [phone] * (ABNORMAL) LIPID PROFILE (12/05/2016 11:44 AM OUTSIDE CONTRACTOR SALES) Pathologist [facility] Cholesterol Total 233(H) 125 - 200 mg/dL [...] than LDL cholesterol target. Test Performed at: [facility] [address] [facility] [place] [address] LITO BROWN DO,MPH Blood specimen (specimen) BLOOD SPECIMEN / Unknown 12/05/2016 11:44 AM OUTSIDE CONTRACTOR SALES 12/05/2016 11:44 AM OUTSIDE CONTRACTOR SALES Navdeep Carroll PA-C LAB - CHEMISTRY ORDERABLES Final Result Performing Organization Address [facility] Co de Phone Number [facility] ([facility]) [address] * HEPATITIS C RIBA CONFIRMATION (06/06/2010 2:21 PM CDT) Hepatitis C Antibody 0.1 0.0 - 0.9 s/co ratio [facility] ([facility]) Comment: Negative Not infected with HCV, unless recent infection is suspected or other evidence exists to indicate HCV infection. Blood specimen (specimen) 06/06/2010 2:21 PM CDT 06/06/2010 9:18 PM CDT Narrative [facility] ([facility]) - 06/07/2010 9:30 AM CDT Preferred Lab:->[facility] Performed at: - [facility] [address] [place], [place] [id number] [facility] Director: Yun Mckeon MD, Phone: [phone] Historical Provider MD LAB - SEROLOGY ORDERABLES Final Result Performing Organization Address City/[facility] Co de Phone Number [facility] ([facility]) [address] [place] [address] from Last 3 Months or Most Recently Relevant to Health Maintenance Insurance [employer] Care Teams Ship Scaler Relationship Specialty Start Date End Date Navdeep Carroll PA-C [address] [place] [phone] PCP - General Physician Route Contractor 01/06/18
--- OUTSIDE RECORDS SUMMARY | 2025-07-29 01:46 | XMS_ITS | Encounter Summary ---
Author Organization [facility] Address [address] [place] [address] Care Team Providers Care Outpatient Pharmacy Manager Name Role Phone Sage Merritt DO Primary Care Provider [phone] Encounter Details Date Type Department Care Team (Late st Contact Info) Description 09/07/1999 Outpatient Historical HIS [facility] PRIMARY [facility]ARE Irasema Thompson MD Social History Tobacco Use Types Packs/Day Years Used Date Smoking Tobacco: Never Assessed Comments Unknown Sex and Gender Information Value Date Recorded Sex Assigned at Not on file Legal Sex Female 4:31 AM WRONG ADDRESS CLERK Gender Identity Not on file Sexual Orientation Not on file documented as of this encounter Plan of Treatment Not on file documented as of this encounter Visit Diagnoses Not on filedocumented in this encounter Care Teams Outpatient Pharmacy Manager Relationship Specialty Start Date End Date Sage Merritt DO [address] [place] [phone] PCP - General Family Practice 11/06/23 documented as of this encounter
--- OUTSIDE RECORDS SUMMARY | 2025-07-29 01:46 | XMS_ITS | Clinical Summary ---
Author Organization [facility] Address [address] [facility] [address] [facility] [place] [address] Phone Care Team Providers Care Salon Sales Consultant Name Role Phone Sage Merritt DO Primary Care Provider [phone] Allergies Active Allergy Reactions Criticality Noted Date [...] COVID-19 VACCINE - EMERGENCY USE AUTHORIZATION, MRNA, [id number](PF) 30 MCG/0.3 ML IM SUSP 03/02/2021,02/09/2021 Influenza [...] on file Legal Sex Female 4:31 AM SUPERVISOR REFINING Gender Identity Not on file Sexual Orientation Not on file Last Filed Vital Signs Vital Sign Reading Time Taken Comments Blood Pressure 132/87 12/19/2023 8:28 AM SUPERVISOR REFINING Pulse 76 12/19/2023 8:28 AM SUPERVISOR REFINING Temperature 36.5 C (97.7 F) 12/19/2023 8:28 AM SUPERVISOR REFINING Respiratory Rate 25 09/24/2022 4:00 PM SUPERVISOR REFINING Oxygen Saturation 96% 12/19/2023 8:28 AM SUPERVISOR REFINING Inhaled Oxygen Concentration - - Weight 81.4 kg (179 lb 6.4 oz) 12/19/2023 8:28 A M SUPERVISOR REFINING Height 149.9 cm (4' 11) 12/19/2023 8:28 AM SUPERVISOR REFINING Body Mass Index 36.23 12/19/2023 8:28 AM SUPERVISOR REFINING Plan of Treatment Health Maintenance Due Date Last Done Comments HEPATITIS B VACCINES (1 of 3 - 19+ 3-dose series) 2003 HPV VACCINES (1 - 3-dose SCD M series) 2011 DTAP/TDAP/TD VACCINES (2 - T d or Tdap) 02/09/2024 02/08/2014 BREAST CANCER SCREENING 2024 03/19/2023 Preventative Visit- Commercial 11/17/2024 0 03/03/2023, 09/24/2022, 12/18/2020, Additional history exists INFLUENZA VACCINE (#1) 2025 10/01/2015 COVID-19 Vaccine (2024-2 6 season) 2025 03/02/2021, 02/09/2021 PAP SMEAR [...] 2. Benign findings. DICTATION LOCATION: Location 1 [facility] 03/20/2023 7:25 AM CDT MAMMOGRAPHY DIGITAL DIAGNOSTIC [...] Benign findings. DICTATION LOCATION: Location 1 - [facility] Rosalba Salas BOTTOMING MACHINE OPERATOR MAMMO ORDERABLES Fin al Result * CERV/VAG [...] ithelial lesion or malignancy. CYTOLOGY INFECTION Q uhakan Ramirez Comment: Shift in vaginal chante suggestive of bacterial vaginosis. COMMENT (PAP TEST) Q jaun Ramirez Comment: This Pap test has been evaluated with computer assisted technology. JAVA ENGINEER: Violetta Ramirez Comment: MMW, CT(ASCP) CT screening location: [place] [address] [place] [address] [address] NOTE [address] Hallie Ramirez Comment: [...] and current clinical information. Test Performed at: [facility] [address] [phone] Kirk Mao Genital SWAB OF ENDOCERVIX / Unknown 03/03/2023 4:50 PM CDT 03/04/2023 1:11 AM CDT Rosalba Salas NP PATHOLOGY/CYTOLOGY O RDERABLES Final Result [facility] [phone] [facility] [address] [phone] from Last 3 Months or Most Recently Relevant to Health Maintenance Insurance [employer] [facility] [id number] Care Teams Salon Sales Consultant Relationship Specialty Start Date End Date Sage Merritt DO [address] [place] [phone] PCP - General Family Practice 11/06/23
--- OUTSIDE RECORDS SUMMARY | 2025-07-29 01:46 | XMS_ITS | Encounter Summary ---
Author Organization [facility] Address [address] [place] [address] Care Team Providers Care Rn Cardiology Name Role Phone Sage Merritt DO Primary Care Provider [phone] Encounter Details Date Type Department Care Team (Late st Contact Info) Description 10/28/2011 Chart Note [facility] Orthopaedic Trauma Surgery [address] [facility] [address] [phone] Suresh Ferguson MD [address] [place] [address] Social History Tobacco Use Types Packs/Day Years Used Date Smoking Tobacco: Never Assessed Comments Unknown Sex and Gender Information Value Date Recorded Sex Assigned at Not on file Legal Sex Female 4:31 AM DINKEY PRESS OPERATOR Gender Identity Not on file Sexual Orientation Not on file documented as of this encounter Progress Notes * Suresh Ferguson MD - 10/28/2011 9:17 AM CST Dear Marybeth Harris MD, We had the pleasure of seeing Leona Royal today in sports medicine and shoulder surgery clinic at [facility] for her right gastroc strain. We have recommended ice, NSAIDs, and physicaltherapy. She may also discontinue crutches. We will gladly see her back if her symptoms persist and do not improve in the future. Please do not hesitate to contact me with questions regarding her or any other patient in the future. Best regards, Shan Lombardo MD EY PRESS OPERATOR documented in this encounter Plan of Treatment Not on file documented as of this encounter Visit Diagnoses Not on filedocumented in this encounter Care Teams Rn Cardiology Relationship Specialty Start Date End Date Sage Merritt DO [address] [place] [phone] PCP - General Family Practice 11/06/23 documented as of this encounter
--- NOTE | 2025-07-29 06:29 | WPDHPUPDATE1 ---
History and Physical Update Update Date/Time: 07/29/25 06:29 History and Physical has been reviewed, including an updated exam of the patient. There are NO changes in the patient's condition. Risks, benefits, and alternatives have been discussed and questions answered. Patient agrees to proceed with procedure. als remove nexplanon
[2025-07-29] MEDS: LACTATED RINGERS 1,000 ML 30 ML IV CONT ×2 (08:20→10:38)
[2025-07-29] MEDS: ACETAMINOPHEN 500 MG TABLET 1000 MG PO ×3 (09:01→18:27)
[2025-07-29] MEDS: KETOROLAC 15 MG/ML VIAL (*BKC) IV PUSH (09:01)
--- NOTE | 2025-07-29 09:01 | WPDANESEPPF ---
Anes - Initial Pre Proc Eval Procedure: Operation Date: 07/29/25 10:00 Proposed Procedures p Robotic Assisted Total Vaginal Hysterectomy with Bilateral Salpingectomy, Left Ovarian Cystectomy, - Benny Ortiz MD s Nexplanon Removal Left Upper Arm - Benny Ortiz MD Date/Time: 07/29/25 09:01 Surgeon: Benny Ortiz MD Pre Op Diagnosis: Pain, Dysmenorrhea, Left Ovarian Cyst Patient Data Age: 39 Gender: F Height: 1.5 m Weight: 80 kg Allergies Allergy/AdvReac Type Severity Reaction Status Date / Time iohexol (From contrast - CT, Allergy Intermediate Swelling Verified 07/21/25 10:26 X-RAY) of Lip/Tongue/Throat Home Medications ?Medication ?Instructions ?Recorded ?Confirmed ?Type ibuprofen 200 mg tablet (Advil) 400 mg PO QID PRN pain 07/21/25 07/21/25 History magnesium 200 mg tablet 400 mg PO HS PRN insomnia 07/21/25 07/21/25 History hydrocodone 5 mg-acetaminophen 325 1 tablet PO Q4H PRN pain #20 tabs 07/29/25 Rx mg tablet HCG: negative Patient hx anesthesia problems: none Family hx anesthesia problems: none Results Review: All pre-operative results and documents have been reviewed as part of the pre-operative evaluation. [facility] Past Medical History Medical History Endometriosis Anxiety GERD (gastroesophageal reflux disease) Asthma Pelvic pain Fatty liver Surgical History Surgical History History of eye surgery Family History Family History Mother Family history non-contributory Social History Social History Smoking status: Never smoker Substance use: never Substance use type: does not use Living arrangements: with family Gender identity (if verbalized by the patient): Female Spiritual care concerns: No Anes - Eval Final PreProcedure Day of Procedure 07/29/25 09:01 Patient weight: obese Heart: regular rate and rhythm Lungs: normal air movement Airway: Mallampati scale class II Neurological: alert and oriented Last oral intake: >/= 8 hours ASA classification: II Emergent: no Anesthetic plan: proceed Anesthesia type and monitoring: general ETT and standard monitoring Results Review: All pre-operative results and documents have been reviewed as part of the pre-operative evaluation. Informed Consent: The patient's anesthetic plan and its attendant risks and benefits were discussed with the patient/family/POA. Questions were solicited and answers provided to the satisfaction of the patient/family/POA.
[2025-07-29] MEDS: SCOPOLAMINE 1 MG PATCH 1 PATCH TRANSDERM (09:02)
[2025-07-29] MEDS: ceFAZolin 2 GM in SODIUM CHLORIDE 0.9% IV 50 ML 100 ML IVPB (09:16)
[2025-07-29 09:21] LABS: BEDSIDEPREGUCG Negative (Negative)
--- NOTE | 2025-07-29 10:30 | W.PM.PROC2 ---
Procedure Note - Detailed Date of Procedure 07/29/25 Pre-op Diagnosis Pain, Dysmenorrhea, Left Ovarian Cyst Post-op Diagnosis Same Procedure Performed Robotic total vaginal hysterectomy with bilateral salpingectomy and destruction of left ovarian cyst/removal of Nexplanon Surgeon Benny Ortiz MD Anesthesia General Indications 39-year-old female with an enlarged uterus excessive bleeding pelvic pain and left ovarian cyst Findings Enlarged uterus. Large left ovarian cyst simple in nature which was drained of clear fluid. Normal-appearing right ovary and tube. Description of Procedure Patient was prepped draped in the normal sterile fashion placed in dorsal lithotomy position. Under excellent general trach anesthesia weighted speculum placed in posterior fornix vagina. Anterior lip of the cervix grasped with single-tooth tenaculum. Uterus sounded to 11cm. Serial dilatation with fragmented dilators performed followed by passage of the 10. BRITNEY and the 2. 0.5 cold cup. A 16 Armenian catheter was placed in bladder and the weighted speculum and single-tooth removed. The gloves were changed. A supraumbilical incision was made the Veress needle passed in the abdomen. Abdomen filled with CO2 gas to 15 of mercury. The 8mm trocar advanced in the abdomen downside visualized no seen. Patient placed in Trendelenburg and right left lateral quadrant incisions made. 8mm trocars advanced under direct visualization assuring no injury. Right upper quadrant incision made the 8mm trocar advanced under direct visualization assuring no injury. The robot was docked. Attention was turned to the dependency counselor. The left round ligament was grasped, burned, cut. Anterior bladder flap was formed by sharply dissecting the peritoneum and reflecting this caudally away from the cervix uterus the opposite round ligament which was clamped, burned,. Next the left fallopian tube was sharply dissected away from the ovarian complex and left attached to its origin this was repeated with the right fallopian tube leaving it attached to its uterine origin. The left ovary was noted be markedly enlarged a linear incision made drained of serous fluid this was suction. Conserving the left ovary the left i utero-ovarian ligament was clamped, burned, cut and brought to level of previously cut round ligament. In similar fashion conserving the right ovary, the utero-ovarian ligament was skeletonized clamping burning cutting and bringing this to level of previously cut round ligament. Next the cardinal broad ligaments on the left were serially skeletonized clamping burning cutting and bringing this down the lateral edge of the uterus until the uterine vessels could be seen on the left these were markedly enlarged and individually clamped, burned, cut. In similar fashion on the right the cardinal broad ligaments were serially skeletonized clamping burning cutting and bringing this down the lateral edge of the uterus until the uterine vessels could be seen on the right these were individually clamped, burned, cut. Blanching the uterus was noted a colpotomy incision was made. Cervix uterus and tubes removed through the vagina. The vagina then closed with continuous running 0V lock from lateral edge to lateral edge back to midline. Irrigation undertaken until clear blood loss estimated [id number]. The robot was undocked. The gas removed from the abdomen. The trocars removed the incisions closed with 4-0 Monocryl and glue. Attention was turned to removal of the Nexplanon and the left antecubital area was swabbed with Betadine solution stab with an 11 blade and popped out in 1 piece easily blood loss for that portion was 1cc this was glued. The patient was awakened went recovery in satisfactory condition. All sponge, needle, instrument counts were correct. There were no immediate complications Estimated Blood Loss 25 Drains No Packing No Pathology Yes Complications No immediate complications Condition Stable Disposition PACU
--- NOTE | 2025-07-29 10:35 | P.DS_ITS ---
DS: Admitting Diagnosis Discharge Date 07/30/2020 for Admitting Diagnosis Excessive heavy bleeding/dyspareunia/left ovarian cyst DS: Discharge Diagnosis Discharge Diagnosis (1) Dyspareunia: Status: Acute (2) Left ovarian cyst: Code(s): N83.202 - Unspecified ovarian cyst, left side Status: Acute DS: Summary Hospital Course Reason for hospitalization: Patient underwent robotic total vaginal hysterectomy bilateral salpingectomy and destruction of left ovarian cyst on 07/29/2025. Hospital Course: Patient's hospital course unremarkable. She remained afebrile. She was up, voiding without difficulty, eating regular diet, ambulating, and generally without complaints. Time Spent with Patient Time attestation: Total time spent providing and/or coordinating discharge services: Exam Const: General: cooperative, healthy appearing and comfortable Nutritional Appearance: average body habitus Orientation/consciousness: oriented to person, oriented to place and oriented to time HENMT: Head: normal to inspection Resp: Effort & Inspection: normal respiratory effort Cardio: Rate: regular rate Rhythm: regular rhythm Heart sounds: S1 normal heart sound present and S2 normal heart sound present GI: Inspection: normal to inspection and incision (Wounds are clean dry and intact) DS: Data Data Completed and Pending Labs on day of discharge: Labs from last 24 hours 07/29/25 08:30 POC Urine HCG, Qual Negative Discharge Plan Discharge Patient Disposition: Home Discharge Instructions: Remove the Scopolamine patch that was placed behind your ear in 72 hours or less. Wash your hands after touching. Patient Language: Pashto Stand Alone Forms: General Discharge Instructions Follow-up/Referrals: Benny Noel MD [Physician, [facility]] Discharge Medications: New hydrocodone-acetaminophen 5-325 mg tablet 1 tablet PO Q4H PRN (Reason: pain) Qty: 20 0RF No Action magnesium 200 mg tablet 400 mg PO HS PRN (Reason: insomnia) ibuprofen [Advil] 200 mg tablet 400 mg PO QID PRN (Reason: pain)
--- NOTE | 2025-07-29 10:39 | S_PTH ---
PATIENT: Yissel Reese LOC: [facility] U#:[id number] AGE/SX: 39/F ROOM: RE07/29/[address]: Benny Ortiz MD : 1985 BED: DIS: 07/30/2025 SPEC #: [id number] RECD: 07/29/25 11:07 STATUS: JORDAN REQ #: [id number] WILMER: 07/29/25 10:[address]: Benny Noel DEPT: [facility] Surgical RECD BY: Hyacinth Rivas ENTERED: 07/29/25 11:08 SP TYPE: Surgical OTHR DR: UNKNOWN,DOCTOR Tissues: A - Uterus Procedures: Hematoxylin and Eosin Stain Gross and Microscopic Level 5
[2025-07-29] MEDS: fentaNYL CITRATE INJ (*CRX) 100 MCG/2 ML VIAL 25 MCG IV PUSH ×4 (10:56→11:14)
--- NOTE | 2025-07-29 11:52 | PC.NURSE ---
This patient, Yissel Reese, was received from PACU on 07/29/25 at 1152. Patient/family oriented to unit policies and routines.
[2025-07-29] MEDS: KETOROLAC 30 MG/ML VIAL (*BKC) IV PUSH ×2 (12:34→18:26)
[2025-07-29] MEDS: SIMETHICONE 80 MG TAB.CHEW PO ×2 (12:34→17:23)
[2025-07-29] MEDS: DEXTROSE 5%/LACTATED RINGERS 1,000 ML 125 ML IV CONT (12:35)
[2025-07-29] MEDS: DOCUSATE SODIUM 100 MG CAPSULE PO (17:23)
[2025-07-30] MEDS: KETOROLAC 30 MG/ML VIAL (*BKC) IV PUSH (00:01)
[2025-07-30] MEDS: ACETAMINOPHEN 500 MG TABLET 1000 MG PO ×2 (00:02→08:43)
[2025-07-30 05:00] VITALS: BP 106/66; PULSE 74; RESP 16; TEMP 37; O2SAT 97
[2025-07-30 05:08] LABS: Hematocrit 40.0 % (37.0-47.0); Hemoglobin 12.5 g/dL (12.0-15.0); Immature Granulocyte Percent A 0.4 % (0-0.5); Lymphocytes Absolute Auto 2.20 K/mm3 (0.9-3.2); Mean Corpuscular HGB Conc 31.3 g/dl (32-36); Mean Corpuscular Hemoglobin 28.2 pg (26-34); Mean Corpuscular Volume 90.1 fl (80-100); Nucleated Red Blood Cells Absolute Auto 0.000 K/mm3 (0.0-0.012); Nucleated Red Blood Cells Perc 0.0 % (0.0-0.2); Platelet Count Result 306 k/mm3 (150-375); Red Blood Count 4.44 M/mm3 (4.2-5.4); White Blood Count 12.0 K/mm3 (4.5-10.0)
--- NOTE | 2025-07-30 07:04 | P.PNOB_ITS ---
MECHANICAL MANUFACTURING TECHNICIAN - A/P Assessment and plan (1) Dyspareunia: Status: Acute (2) Left ovarian cyst: Code(s): N83.202 - Unspecified ovarian cyst, left side Status: Acute Plan home Postoperative Procedures: Procedures Operation Date: 07/29/25 10:00 Actual Procedure Side Surgeon p Robotic Assisted Total Vaginal Hysterectomy with Bilateral Salpingectomy, Left Ovarian Destruction, Bilateral Benny Ortiz MD s Nexplanon Removal Left Upper Arm Left Benny Ortiz MD Time Spent With Patient Time: Total time spent is greater than 50% in coordination of care (as documented) at patient's floor/unit and/or counseling patient: Time with patient: less than 15 minutes MECHANICAL MANUFACTURING TECHNICIAN- PN:Subj Post-Op Subjective Date/time seen: 07/30/25 07:04 Subjective: patient reports feeling better, patient has no complaints, patient desires discharge and pain is well controlled Review of Systems 2 Review of Systems: CONSTITUTIONAL: Denies fever, chills, or sweats. EYES: Denies visual changes, redness, or discharge. ENT: Denies rhinorrhea, congestion, sore throat, or otalgia. CARDIOVASCULAR: Denies chest pain, palpitations, or edema. RESPIRATORY: Denies cough or dyspnea. GASTROINTESTINAL: Denies abdominal pain, nausea, vomiting, or diarrhea. GENITOURINARY: Denies dysuria or hematuria. SKIN: Denies rash or itching. MUSCULOSKELETAL: Reports right foot pain NEUROLOGIC: Reports numbness in the toes of the right foot. Denies headache, dizziness, or weakness. PSYCHIATRIC: Denies anxiety or depression. Exam 2 Const: General: cooperative, healthy appearing and comfortable Nutritional Appearance: average body habitus Orientation/consciousness: oriented to person, oriented to place and oriented to time HENMT: Head: normal to inspection Resp: Effort & Inspection: normal respiratory effort Cardio: Rate: regular rate Rhythm: regular rhythm Heart sounds: S1 normal heart sound present and S2 normal heart sound present GI: Inspection: normal to inspection and incision (Wounds are clean dry and intact) MECHANICAL MANUFACTURING TECHNICIAN - PN: Obj Data Vital Signs Vital Signs: Vital Signs - 24 hr 07/29/25 08:30 07/29/25 10:38 07/29/25 10:50 Temperature 98.5 F 97.5 F L Pulse Rate 84 66 64 Respiratory Rate 16 16 22 H Blood Pressure 128/73 94/42 L 115/65 Pulse Oximetry 98 98 99 Oxygen Delivery Room Air Simple Face Mask Simple Face Mask Oxygen Flow Rate 6 8 07/29/25 11:05 07/29/25 11:20 07/29/25 11:35 Temperature Pulse Rate 63 70 69 Respiratory Rate 24 H 16 18 Blood Pressure 99/77 L 109/73 122/57 L Pulse Oximetry 100 97 100 Oxygen Delivery Simple Face Mask Room Air Room Air Oxygen Flow Rate 8 07/29/25 12:00 07/29/25 16:30 07/29/25 19:05 Temperature 97.6 F 98.3 F Pulse Rate 73 63 56 L Respiratory Rate 18 14 15 Blood Pressure 120/76 110/70 Pulse Oximetry 97 99 Oxygen Delivery Room Air Oxygen Flow Rate 07/29/25 19:06 07/29/25 23:55 07/29/25 23:55 Temperature 98.0 F 98.1 F Pulse Rate 56 L 59 L 59 L Respiratory Rate 15 16 16 Blood Pressure 110/62 110/57 L Pulse Oximetry 99 96 96 Oxygen Delivery Room Air Oxygen Flow Rate 07/30/25 05:00 07/30/25 05:00 Temperature 98.6 F Pulse Rate 74 74 Respiratory Rate 16 16 Blood Pressure 106/66 Pulse Oximetry 97 97 Oxygen Delivery Room Air Oxygen Flow Rate Intake/Output Intake/Output: Intake & Output 07/27/25 07/28/25 07/29/25 07/30/25 23:59 23:59 23:59 23:59 Intake Total 1450 Output Total 1310 400 Balance 140 -400 Meds/Results Medications: Active Medications Generic Name Dose Route Start Last Admin Trade Name Alexxq PRN Reason Stop Dose Admin Acetaminophen 1,000 mg 07/29/25 12:00 07/30/25 00:02 Acetaminophen 500 Mg Tablet PO 1,000 mg Q6HR [facility] Administration Docusate Sodium 100 mg 07/29/25 17:00 07/29/25 17:23 Docusate Sodium 100 Mg Capsule PO 100 mg BID CHUCKY Administration Enoxaparin Sodium 40 mg 07/30/25 09:00 Enoxaparin 40 Mg/0.4 Ml Syringe SUB-Q DAILY [facility] Dextrose/Lactated Ringer's 1,000 mls @ 125 mls/hr 07/29/25 11:48 07/29/25 12:35 Dextrose 5%/Lactated Ringers IV CONT 125 mls/hr .Q8H [facility] Administration Ibuprofen 600 mg 07/30/25 06:00 Ibuprofen 600 Mg Tablet PO Q6HR CHUCKY Naloxone HCl 0.1 mg 07/29/25 11:48 Naloxone Hcl 0.4 Mg/Ml Vial IV PUSH Q2M PRN Respiratory rate less than 10 Ondansetron HCl 4 mg 07/29/25 11:48 Ondansetron Inj 4 Mg/2 Ml Vial IV PUSH Q6H PRN Nausea And Vomiting Oxycodone HCl 5 mg 07/29/25 11:48 Oxycodone Hcl (*Crx) 5 Mg Tab Ir PO Q4H PRN Pain Rated 4-6 Oxycodone HCl 10 mg 07/29/25 11:48 Oxycodone Hcl (*Crx) 5 Mg Tab Ir PO Q6H PRN Pain Rated 7-10 Simethicone 80 mg 07/29/25 12:00 07/29/25 17:23 Simethicone 80 Mg Tab.Chew PO 80 mg TIDWM CHUCKY Administration Labs 07/30/25 04:24 Labs: Laboratory Results - last 24 hr 07/29/25 07/30/25 08:30 04:24 WBC 12.0 H RBC 4.44 Hgb 12.5 Hct 40.0 MCV 90.1 MCH 28.2 MCHC 31.3 L RDW 15.4 H Plt Count 306 MPV 9.4 Immature Gran % (Auto) 0.4 Neut % (Auto) 75.0 H Lymph % (Auto) 18.4 [place] % (Auto) 5.2 Eos % (Auto) 0.8 Baso % (Auto) 0.2 Lymph # (Auto) 2.20 [place] # (Auto) 0.6 Eos # (Auto) 0.1 Baso # (Auto) 0.0 Abs Immat Gran (auto) 0.05 H Absolute Neuts (auto) 9.0 H Absolute Nucleated RBC 0.000 Nucleated RBC % 0.0 POC Urine HCG, Qual Negative
[2025-07-30 08:06] VITALS: BP 118/56; PULSE 74; RESP 16; TEMP 37.3; O2SAT 96
[2025-07-30] MEDS: IBUPROFEN 600 MG TABLET PO (08:43)
[2025-07-30] MEDS: SIMETHICONE 80 MG TAB.CHEW PO (08:43)
[2025-07-30] MEDS: DOCUSATE SODIUM 100 MG CAPSULE PO (08:44)
[2025-07-30] MEDS: ENOXAPARIN 40 MG/0.4 ML SYRINGE SUB-Q (08:46)
== END 2025-07-30 10:45 | disposition home or self-care (01) ==
LOC: ANHSURGERY 07:57 → ANHOB2 11:57
PROVIDERS: Visit Provider Obstetrics & Gynecology
PROC: (CPT 58662; principal; 2025-07-29 10:00)
PROC: (CPT 58662; 2025-07-29 10:00)
DX: N83.202 Unspecified ovarian cyst, left side (principal); N88.8 Other specified noninflammatory disorders of cervix uteri; N80.03 Adenomyosis of the uterus; N83.8 Other noninflammatory disorders of ovary, fallopian tube and broad ligament; R10.2 Pelvic and perineal pain; N94.6 Dysmenorrhea, unspecified; Z30.46 Encounter for surveillance of implantable subdermal contraceptive; E66.9 Obesity, unspecified; Z68.37 Body mass index [BMI] 37.0-37.9, adult
CPT/HCPCS: 58662; 11982; 58552; S2900; 36415; 85025; 88307; 99199; J0690; A9270; J1100; J1171; J1650; J1885; J2003; J2250; J2405; J2704; J3010; J7030; J7120; J7121